=== PATIENT | male | born 1995 | race Caucasian/White ===

== ENCOUNTER 2020-06-27 23:05 | Emergency (ER) | payer MEDICAID ==
[~2020-06-27] VITALS: Ht 182.9 cm; Wt 81.6 kg
--- NOTE | 2020-06-27 23:08 | NUR ---
PRESENTED TO THE ER REQUESTING MEDICAL CLEARANCE TO GET ACEPTED AT A DRUG REHAB FACILITY, PT A, OX4. AMBULATORY WITH STEADY GAITS . DENIED ANY PAIN OR DISCOMFORT AT THIS TIME. DENIED SI/HI. UANBLE TO PROVIDE URINE SAMPLE AT THIS TIME. VSS. WILL CONT TO MONITOR ,
[2020-06-28 00:18] LABS: BASOPHILS % (AUTO) 0.3 % (0.0-2.0); HEMATOCRIT 41 % (39-51); HEMOGLOBIN 13.8 g/dL (13.5-17.5); LYMPHOCYTES # (AUTO) 2.4 /CMM (0.8-4.8); LYMPHOCYTES % (AUTO) 34.8 % (20.0-44.0); MEAN CORPUSCULAR HGB CONC 33 g/dl (31.0-36.0); MEAN CORPUSCULAR VOLUME 88 fL (80-96); MONOCYTES # (AUTO) 0.7 /CMM (0.1-1.30); MONOCYTES % (AUTO) 10.2 % (2.0-12.0); NEUTROPHILS # (AUTO) 3.6 /CMM (1.8-8.9); NEUTROPHILS % (AUTO) 52.7 % (43.0-81.0); PLATELET COUNT (AUTO) 354 /CMM (150-450); RED BLOOD CELL COUNT(AUTO) 4.68 MIL/uL (4.5-6.0); WHITE BLOOD COUNT (AUTO) 6.8 K/uL (4.3-11.0)
--- NOTE | 2020-06-28 00:39 | NUR ---
MULTIPLE ATTEMPTS BY PT TO PROVIDE WATER URINE. SAMPLE COLD AND CLEAR. PT UNABLE TO PROVIDE URINE SAMPLE AT THIS TIME
[2020-06-28 00:41] LABS: ALANINE AMINOTRANSFERASE 63 U/L (12-78); ALBUMIN 3.3 g/dL (3.4-5.0); ALCOHOL, BLOOD < 3 mg/dL (0-0); ALKALINE PHOSPHATASE 52 U/L (46-116); ASPARTATE AMINOTRANSFERASE 56 U/L (15-37); BILIRUBIN,DIRECT 0.3 mg/dL (0.0-0.2); BILIRUBIN,TOTAL 0.7 mg/dL (0.2-1.0); CARBON DIOXIDE 35 mmol/L (21-32); CHLORIDE 95 mmol/L (98-107); CREATININE 0.8 mg/dL (0.6-1.3); GLUCOSE 142 mg/dL (74-106); POTASSIUM 3.9 mmol/L (3.5-5.1); SODIUM SERUM 134 mmol/L (136-145); TOTAL PROTEIN, SERUM 7.9 g/dL (6.4-8.2)
[2020-06-28 00:45] LABS: ACETAMINOPHEN 0 ug/ml (10-30)
[2020-06-28 00:55] LABS: UREA NITROGEN, BLOOD 10 mg/dL (7-18)
--- NOTE | 2020-06-28 02:00 | NUR ---
PT STATES HE WAS STAYING AT REHAB FACILITY LOCATED AT [address] [place] [address]. MULTIPLE ATTEMPTS TO CALL FACILITY ([phone]). NO ANSWER, WILL FOLLOW UP
--- NOTE | 2020-06-28 02:24 | NUR ---
PT IS MEDICALLY CLEAR AND STABLE FOR D/C. Patient discharged in stable condition. Written and verbal after care instructions given. Patient verbalizes understanding of instruction.
[2020-06-28 02:27] VITALS: BP 121/71
--- NOTE | 2020-06-28 02:27 | NUR ---
Patient discharged to home in stable condition. Written and verbal after care instructions given. Patient verbalizes understanding of instruction. Pt ambulated out of ED. VSS.
== END 2020-06-28 02:28 | disposition home or self-care (01) ==
LOC: ER 23:08
DX: F11.10 Opioid abuse, uncomplicated (principal); F17.200 Nicotine dependence, unspecified, uncomplicated; Z60.2 Problems related to living alone; Z86.19 Personal history of other infectious and parasitic diseases
CPT/HCPCS: 36415; 80048-TC; 80076-TC; 85025-TC; G0480